=== PATIENT | female | born 1960 | race Caucasian/White ===

== ENCOUNTER 2018-09-02 09:07 | Day surgery (SDC) | payer OTHER, BC ==
[2018-09-02] MEDS ORDERED: MIDAZOLAM 1 MG/ML 2 ML INJ (10:49)
[2018-09-02] MEDS ORDERED: PROPOFOL 200 MG INJ (10:49)
[2018-09-02] MEDS ORDERED: PROPOFOL 40 ML (10:49)
[2018-09-02] MEDS ORDERED: LIDOCAINE 2% (SDV) 5 ML INJ (10:49)
[2018-09-02] MEDS ORDERED: HYDROmorphONE 1 MG/5 ML IV SYRINGE IV (11:00)
[2018-09-02] MEDS ORDERED: LABETALOL HCL 20MG INJ IV (11:00)
[2018-09-02] MEDS ORDERED: ONDANSETRON 4 MG INJ IV (11:00)
== END 2018-09-02 12:31 | disposition home or self-care (01) ==
LOC: GIL 09:07
DX: Z12.11 Encounter for screening for malignant neoplasm of colon (principal); K64.8 Other hemorrhoids; K57.30 Diverticulosis of large intestine without perforation or abscess without bleeding; K29.50 Unspecified chronic gastritis without bleeding; E11.9 Type 2 diabetes mellitus without complications; I10 Essential (primary) hypertension; E03.9 Hypothyroidism, unspecified; E78.5 Hyperlipidemia, unspecified; Z79.4 Long term (current) use of insulin
CPT/HCPCS: 43239; 82962; 88305; 88312